=== PATIENT | female | born 1985 | race Caucasian/White ===

== ENCOUNTER 2021-09-29 14:42 | Emergency (ER) | payer MEDICAID, OTHER ==
[~2021-09-29] VITALS: Ht 170.2 cm; Wt 111.0 kg
[~2021-09-29 14:42] MED LIST: NO HOME MEDS; ONDA4TAB6 PO
[2021-09-29 15:11] VITALS: BP 149/102
== END 2021-09-29 18:30 | disposition home or self-care (01) ==
LOC: ER 14:42
DX: R42 Dizziness and giddiness (principal); R11.0 Nausea; R53.83 Other fatigue; M79.10 Myalgia, unspecified site; Z20.822 Contact with and (suspected) exposure to COVID-19; Z90.49 Acquired absence of other specified parts of digestive tract; Z98.890 Other specified postprocedural states
CPT/HCPCS: 36415; 99281; C9803; U0003

== ENCOUNTER 2025-03-18 19:19 | Emergency (ER) | payer MEDICAID ==
[~2025-03-18] VITALS: Ht 172.7 cm; Wt 126.6 kg
[2025-03-18 19:42] VITALS: BP 128/86; PULSE 91; RESP 18; TEMP 97.8; O2SAT 99
--- NOTE | 2025-03-18 20:20 | Physician Documentation ---
History of Present Illness ~ Chief Complaint: Hand pain Stated Complaint: HAND PAIN Time Seen by MD: 19:53 Primary Medical Doctor: [facility] HPI This 39-year-old female presents to the ED with a complaint of left upper extremity pain after injuring her hand in a log splitter. States this occurred yesterday. She has full use of her hand and has a only minor pain but is complaining of swelling and bruising on the posterior aspect Tetanus within 5 years: Yes Medication Reconciliation Allergies: Coded Allergies: latex (Verified Allergy, Unknown, 03/18/25) Scheduled PRN Ondansetron Hcl (Zofran), 1 TAB PO Q6H PRN for nausea Miscellaneous Medications Home Med List (No Home Medications), (Reported) Past Medical History Past Medical History: No Pertinent History Past Surgical History: cholecystectomy, , other Other Past Surgical History: dilation and curettage Drug Use: none Lives with: Mother Lives In: Home Occupation: employed Review of Systems All Other Systems at this time: Reviewed and Negative ROS As stated above in the HPI, otherwise all systems are reviewed and negative. Physical Exam Vital Signs: Temperature: 97.8, Source: Temporal, Heart Rate: 91, Respiratory Rate: 18, BP: 128/86, Pulse Oximetry: 99, Weight: 126.600 Oxygen Flow Rate: 0 Physical Exam General: Alert, no apparent distress. Extremities: Swelling and ecchymosis on the posterior aspect of the left palm. Full range of motion without difficulty. No signs of deformity Neurologic: Oriented x4. Psychiatric: Normal mood and affect. Skin: Normal color, warm and dry. No edema, no ecchymosis. Progress Results/Orders Results/Orders Vital Signs 03/18/25 19:42 Temp 97.8 Pulse 91 Resp 18 B/P (MAP) 128/86 Pulse Ox 99 O2 Flow Rate 0 Medical Decision Making Findings This patient does not present with any acute fractures that I was able to appreciate in her x-ray. Suspect mild to moderate contusion secondary to blunt trauma from the wood splitter. At discharge her advise her to utilize the rice method General Diff Dx:Considerations: Include: Abrasion, Contusion, Fracture, Hematoma, Laceration, Malunion, Neurovascular injury, Open fracture, Sprain, Ulcer, Other Finger Diff Dx:Considerations: Include: Abrasion, Cellulitis, Contusion, Dislocation, Fracture, Hematoma, Laceration, Neurovascular injury, Open fracture, Subungual hematoma, Other Departure Impression: Primary Impression: Hand pain Additional Impression: Superficial bruising Condition: Stable Discharge Instructions: Contusion (Bruise) Additional Instructions: You did not have any fractures in your x-ray.. May use ice in 20 minute intervals and follow up in the outpatient setting for further evaluation Referrals: NO PRIMARY CARE PROVIDER (PCP) Signature Scribe Signature: f Attestation: Scribed for Richard Ortiz [employer] by Richard Rucker NP . 03/18/25 23:01 RICHARD ORTIZ NP Mar 18, 2025 20:20
--- NOTE | 2025-03-18 20:22 | RADIOLOGY REPORT ---
CLINICAL INDICATION: pain TECHNIQUE: 3 radiographic views of the left hand were obtained. Comparison: DI ANKLE, COMPLETE(3VW MIN) on DOS: 12/14/24, DI FOOT, COMPLETE (3VW MIN) on DOS: 12/14/24 FINDINGS/IMPRESSION: There is no evidence of acute fracture or dislocation. The visualized joint space is well maintained. The alignment is anatomical. There is no radiopaque foreign body. Mild soft tissue edema over the dorsum of the hand. If symptoms persist, consider repeat imaging in 7-10 days to follow-up on occult fractures.
== END 2025-03-18 20:42 | disposition home or self-care (01) ==
LOC: ER 19:20
DX: S60.222A Contusion of left hand, initial encounter (principal); Z90.49 Acquired absence of other specified parts of digestive tract; Z91.040 Latex allergy status; X58.XXXA Exposure to other specified factors, initial encounter; Y93.89 Activity, other specified; Y92.89 Other specified places as the place of occurrence of the external cause; Y99.8 Other external cause status
CPT/HCPCS: 73130; 99283